=== PATIENT | female | born 1985 | race Caucasian/White ===

== ENCOUNTER 2023-06-19 18:57 | Emergency (ER) | payer BC, SELFPAY ==
[2023-06-19 19:23] VITALS: BP 145/85; PULSE 101; RESP 16; TEMP 36.6; O2SAT 100; BMI 34.7
[2023-06-19 19:28] LABS: Basophils # 0.1 10^3/uL (0.0-0.1); Basophils % 0.4 %; Eosinophils # 0.4 10^3/uL (0.0-0.8); Eosinophils % 2.5 %; Hematocrit 38.3 % (36-47); Lymphocytes # 2.6 10^3/uL (0.8-4.8); Lymphocytes % 18.3 %; Mean Corpuscular HGB Conc 31.9 g/dL (30-55); Mean Corpuscular Hemoglobin 26.6 pg (27-33); Mean Corpuscular Volume 83.4 fl (85-98); Mean Platelet Volume 9.6 fL (7.4-10.4); Monocytes % 6.7 %; Neutrophils # 10.18 10^3/uL (1.8-7.7); Neutrophils % 71.7 %; Nucleated Red Blood Cells % 0 %; Platelet Count 496 10^3/cmm (157-399); Red Blood Count 4.59 10^6/uL (3.85-5.65); Red Cell Distribution Width 17.3 % (12.1-15.1); White Blood Count 14.18 10^3/uL (3.29-11.43)
[2023-06-19 19:48] LABS: Alanine Aminotransferase 26 U/L (0-33); Albumin Level 4.3 g/dL (3.5-5.2); Alkaline Phosphatase 123 U/L (35-105); Anion Gap 15.6 (5-19); Aspartate Amino Transferase 19 U/L (0-32); Blood Urea Nitrogen 12 mg/dL (6-20); Carbon Dioxide 24 mmol/L (22-29); Chloride 106 mmol/L (98-107); Creatinine Clr Calc Pharmacy 97.1359; Globulin 3.2 g/dL (1.3-4.6); Glomerular Filtration Rate 80.3 mL/min (90-130); Glucose 141 mg/dL (65-115); HCG, Serum Qual Negative (Negative); Lipase 19 U/L (13-60); Osmolality Calculated 294 mOsm/kg (285-295); Potassium 4.6 mmol/L (3.5-5.1); Sodium 141 mmol/L (136-145); Total Bilirubin 0.2 mg/dL (0.15-1.2); Total Protein 7.5 g/dL (6.6-8.7)
--- NOTE | 2023-06-19 20:26 | USR_ITS ---
PROCEDURE INFORMATION: Exam: US Abdomen, Limited; Right Upper Quadrant Exam date and time: 06/19/2023 8:56 PM Age: 37 years old Clinical indication: Abdominal pain; Patient HX: Ruq pain x 48 hours, no nausea or vomiting, no fever. TECHNIQUE: Imaging protocol: Real time ultrasound of the abdomen with image documentation. Limited exam focused on the right upper quadrant. COMPARISON: No relevant prior studies available. FINDINGS: Liver: Mildly increased echotexture in the liver, consistent with mild fatty infiltration. Gallbladder: The gallbladder is unremarkable. No gallstones or intraluminal sludge. No gallbladder wall thickening. No pericholecystic fluid. Sonographic Humphrey's sign is negative per report from the technologist development. Biliary ducts: Normal. No stones. No dilation. Pancreas: The pancreas is unremarkable. No pancreatic ductal dilatation. Right kidney: The right kidney is unremarkable. Aorta: Visualized aorta is unremarkable. Inferior vena cava: Visualized IVC is unremarkable. Portal venous: Hepatopetal flow in the portal vein. Intraperitoneal space: No ascites. US/US gall bladder [id number] IMPRESSION: Mild fatty infiltration of the liver.
--- NOTE | 2023-06-19 20:36 | ED_ITS ---
HPI - Abdominal Pain 2 General: Chief Complaint: Abdominal Pain Stated Complaint: right abdomen pain Time Seen by Provider: 06/19/23 20:27 Source: patient Mode of arrival: ambulatory Limitations: no limitations History of Present Illness: 37-year-old female who states she manage right upper quadrant abdominal pain over the last 2 days states it wraps around to her back states it seems to be improved with rest. States has not worsened with the eating the pains are just intermittent she denies any pain currently or at rest. She had no vomiting or diarrhea states she felt like she may have pulled a muscle. She still has her gallbladder. Associated Symptoms: Denies chills, diarrhea, dysuria, fever(s), nausea and vomiting Review of Systems 2 Const: Denies: fever(s), chills, body aches or change in appetite ENMT: Denies: throat pain or dental pain Card: Denies: chest pain Resp: Denies: dyspnea GI: Reports: abdominal pain; Denies: nausea, vomiting or diarrhea : Denies: dysuria Musc: Denies: neck pain or back pain Skin/Breast: Denies: rash Neuro: Denies: headache(s) Physical Exam 2 Const: COMMON NORMALS: no acute distress, patient oriented x3 and healthy appearing HENMT: COMMON NORMALS: normocephalic and atraumatic HEAD & SCALP: n ormocephalic and atraumatic Eye: COMMON NORMALS: Equal, round and reactive pupils present and EOMs intact bilaterally PUPIL: Yes Equal, round and reactive pupils present Neck/C-Spine: COMMON NORMALS: full ROM and supple Chest: COMMONS NORMALS: normal inspection of the chest Resp: COMMON NORMALS: normal respiratory effort Cardio: COMMON NORMALS: regular rate, regular rhythm and No murmurs present (Cardio) RATE: regular rate RHYTHM: regular rhythm GI: COMMON NORMALS: Normal to inspection, nondistended, normoactive bowel sounds present, Soft to palpation, non-tender and no masses PALPATION: Yes Soft to palpation OTHER: mild ruq tenderness Extremity: COMMON NORMALS: normal to inspection and full ROM Neuro: COMMON NORMALS: patient oriented x3, moves all extremities and no focal motor deficits Psych: COMMON NORMALS: mental status grossly normal, Normal thought process present and cooperative THOUGHT PROCESS: Normal thought process present Skin: COMMON NORMALS: no rashes or lesions noted and no wounds GENERAL SKIN EXAM: no rashes or lesions noted Course 2 Vital Signs: Vital signs: Vital Signs Temperature 98 F 06/19/23 19:23 Pulse Rate 72 06/19/23 21:06 Respiratory Rate 20 H 06/19/23 21:06 Blood Pressure 145/85 06/19/23 19:23 Pulse Oximetry 97 06/19/23 21:06 MDM - Abdominal Pain Medical Decision Making Patient presents here with abdominal pain imaging here shows no cholecystitis blood works normal pains improved her exam at discharge is benign she is follow- up with her PCP and return if worsening she understands agrees to plan. Medical Records I reviewed the patient's medical records. Lab Data I reviewed the patient's lab results. 06/19/23 19:22 06/19/23 19:22 Labs/Radiology: Laboratory Results WBC 14.18 10^3/uL (3.29-11.43) H 06/19/23 19: RBC 4.59 10^6/uL (3.85-5.65) 06/19/23 19:22 Hgb 12.20 g/dL (11.27-16.99) 06/19/23 19:22 Hct 38.3 % (36-47) 06/19/23 19: MCV 83.4 fl (85-98) L 06/19/23 19:22 MCH 26.6 pg (27-33) L 06/19/23 19:22 MCHC 31.9 g/dL (30-55) 06/19/23 19:22 RDW 17.3 % (12.1-15.1) H 06/19/23 19:22 Plt Count 496 10^3/cmm (157-399) H 06/19/23 19:22 MPV 9.6 fL (7.4-10.4) 06/19/23 19:22 Neut % (Auto) 71.7 % 06/19/23 19:22 Lymph % (Auto) 18.3 % 06/19/23 19:22 Dukes % (Auto) 6.7 % 06/19/23 19:22 Eos % (Auto) 2.5 % 06/19/23 19:22 Baso % (Auto) 0.4 % 06/19/23 19:22 Neut # (Auto) 10.18 10^3/uL (1.8-7.7) H 06/19/23 19:22 Lymph # (Auto) 2.6 10^3/uL (0.8-4.8) 06/19/23 19:22 Dukes # (Auto) 1.0 10^3/uL (0.2-0.9) H 06/19/23 19:22 Eos # (Auto) 0.4 10^3/uL (0.0-0.8) 06/19/23 19:22 Baso # (Auto) 0.1 10^3/uL (0.0-0.1) 06/19/23 19:22 Nucleated RBC % (auto) 0 % 06/19/23 19: Nucleated RBCs # 0.0 /100WBC 06/19/23 19:22 Sodium 141 mmol/L (136-145) 06/19/23 19:22 Potassium 4.6 mmol/L (3.5-5.1) 06/19/23 19:22 Chloride 106 mmol/L (98-107) 06/19/23 19:22 Carbon Dioxide 24 mmol/L (22-29) 06/19/23 19:22 Anion Gap 15.6 (5-19) 06/19/23 19:22 BUN 12 mg/dL (6-20) 06/19/23 19:22 Creatinine 0.8 mg/dL (0.5-0.9) 06/19/23 19:22 GFR Calculation 80.3 mL/min (90-130) L 06/19/23 19:22 Glucose 141 mg/dL (65-115) H 06/19/23 19:22 Calculated Osmolality 294 mOsm/kg (285-295) 06/19/23 19:22 Calcium 9.0 mg/dL (8.5-10.5) 06/19/23 19:22 Total Bilirubin 0.2 mg/dL (0.15-1.2) 06/19/23 19:22 AST 19 U/L (0-32) 06/19/23 19:22 ALT 26 U/L (0-33) 06/19/23 19:22 Alkaline Phosphatase 123 U/L (35-105) H 06/19/23 19:22 Total Protein 7.5 g/dL (6.6-8.7) 03/14/24 19:22 Albumin 4.3 g/dL (3.5-5.2) 06/19/23 19:22 Globulin 3.2 g/dL (1.3-4.6) 06/19/23 19:22 Lipase 19 U/L (13-60) 06/19/23 19:22 HCG, Qual Negative (Negative) 06/19/23 19:22 All radiology interpretation(s) finalized by discharge Discharge Plan Discharge Patient Disposition: Home Clinical Impression: Abdominal pain Condition: Stable Prescriptions: New ondansetron 4 mg tablet,disintegrating 4 mg PO Q6H PRN (Reason: nausea and vomiting) Qty: 14 0RF Naprosyn 500 mg tablet 500 mg PO BID PRN (Reason: pain) Qty: 20 0RF No Action prednisone 20 mg tablet 20 mg PO DAILY 5 Days Qty: 5 0RF baclofen 10 mg tablet 10 mg PO BID PRN (Reason: pain) Qty: 15 0RF Discharge Orders: Discharge ED (Routine); Ordered 06/19/23 Ordered By: Linda Fernandez Discharge Diet: Advance as tolerated Discharge Activity: Resume usual activity Patient Instructions: Abdominal Pain (ED) Coding Level of Care Code ED Food Photographer for Casey Li
[2023-06-19 21:06] VITALS: PULSE 72; RESP 20; O2SAT 97
[2023-06-19 21:40] VITALS: BP 154/67; PULSE 86; RESP 18; O2SAT 98
== END 2023-06-19 21:41 | disposition home or self-care (01) ==
PROVIDERS: Emergency Provider Emergency Medicine
DX: R10.11 Right upper quadrant pain (principal)
CPT/HCPCS: 36415; 76705; 80053; 83690; 84703; 85025; 99284